=== PATIENT | female | born 1960 | race Caucasian/White ===

== ENCOUNTER 2024-04-19 22:27 | Emergency (ER) | payer BC, SELFPAY ==
[2024-04-19 23:19] LABS: Absolute Basophils 0.1 K/uL (0-0.5); Absolute Eosinophils 0.3 K/uL (0-0.5); Absolute Lymphocytes (CBC) 1.5 K/uL (0.7-4.9); Absolute Monocytes 0.4 K/uL (0.1-1.3); Absolute Neutrophil 3.6 K/uL (1.8-8.0); Basophils % 0.9 % (0-1.3); Eosinophils % 5.9 % (0-4.4); Hematocrit 37.7 % (36.0-45.0); Hemoglobin 12.5 g/dL (12.0-15.0); Lymphocytes % 25.2 % (15.3-44.8); MCHC 33.1 g/dL (32.0-36.0); MCV 87.5 fL (80-100); MPV 7.5 fL (7.6-11.3); Nucleated Red Blood Cells % 0.1 % (0-0); Platelets 256 thou/uL (152-406); Red Cell Distribution Width 16.4 % (12.1-15.2)
[2024-04-19] MEDS ORDERED: NA CHLORIDE 0.9% 1,000 ML ONE (23:23)
[2024-04-19 23:30] LABS: Anion Gap 7.6 mEq/L (5.0-15.0)
[2024-04-20 00:28] LABS: Potassium 3.6 mEq/L (3.5-5.1)
--- NOTE | 2024-04-20 01:40 | ER ---
Nurse's Notes [facility] Name: Rody Camp Age: 63 yrs Sex: Female : 1960 Arrival Date: 04/19/2024 Time: 22:27 Bed 20 Private MD: Diagnosis: Adverse effect of unspecified drugs, medicaments and biological substances Presentation: 04/19 22:36 Chief complaint: Patient states: I took gabapentin 300mg around 1700 and I don't tm6 usually take that medication. Around 1830 I started to feel like my head was scrambled, a little lightheaded, and my lip and nose are numb. I feel unsteady on my feet. Coronavirus screen: Client denies travel out of the [place] in the last 14 days. Ebola Screen: Patient negative for fever greater than or equal to 101.5 degrees Fahrenheit, and additional compatible Ebola Virus Disease symptoms Patient denies exposure to infectious person. Patient denies travel to an Ebola-affected area in the 21 days before illness onset. No symptoms or risks identified at this time. 22:43 Method Of Arrival: Ambulatory tm6 22:51 Initial Sepsis Screen: Does the patient meet any 2 criteria? No. Patient's initial tm6 sepsis screen is negative. Does the patient have a suspected source of infection? No. Patient's initial sepsis screen is negative. Risk Assessment: Do you want to hurt yourself or someone else? Patient reports no desire to harm self or others. Onset of symptoms was April 19, 2024 at 18:30. 22:51 Acuity: SADIE 3 tm6 Triage Assessment: 22:52 General: Appears in no apparent distress. Behavior is calm, cooperative. Pain: Denies tm6 pain. EENT: No signs and/or symptoms were reported regarding the EENT system. Neuro: Level of Consciousness is awake, alert, obeys commands, Oriented to person, place, time, situation, Reports dizziness, numbness in mouth. Cardiovascular: Patient's skin is warm and dry. Respiratory: Airway is patent Respiratory effort is even, unlabored, Respiratory pattern is regular, symmetrical. GI: No signs and/or symptoms were reported involving the gastrointestinal system. Abdomen is round. : No signs and/or symptoms were reported regarding the genitourinary system. Derm: No signs and/or symptoms reported regarding the dermatologic system. Musculoskeletal: No signs and/or symptoms reported regarding the musculoskeletal system. Historical: - Allergies: 22:52 Sulfa (Sulfonamide Antibiotics); tm6 22:52 Vicodin; tm6 - PMHx: 22:52 ptsd; Depressive disorder; Anxiety; dissociative identity disorder; tm6 - PSHx: 22:52 Total abdominal hysterectomy; oophorectomy; nose; carpal tunnel; tm6 - Immunization history:: Client reports receiving the 2nd dose of the Covid vaccine. - Infectious Disease History:: Denies. - Social history:: Smoking status: Patient denies any tobacco usage or history of. Patient/guardian denies using alcohol. Screenin/12 00:12 [facility] ED Fall Risk Assessment (Adult) History of falling in the last 3 months, jb4 including since admission No falls in past 3 months (0 pts) Confusion or Disorientation No (0 pts) Intoxicated or Sedated No (0 pts) Impaired Gait No (0 pts) Mobility Assist Device Used No (0 pt) Altered Elimination No (0 pt) Score/Fall Risk Level 0 - 2 = Low Risk Oriented to surroundings, Maintained a safe environment. Abuse screen: Denies threats or abuse. Nutritional screening: No deficits noted. Tuberculosis screening: No symptoms or risk factors identified. Assessment: 04/19 23:00 General: Appears in no apparent distress. uncomfortable, ill, Behavior is calm, jb4 cooperative, appropriate for age. Pain: Denies pain. Neuro: Level of Consciousness is awake, alert, obeys commands, Oriented to person, place, time, situation, Reports dizziness. Cardiovascular: Patient's skin is warm and dry. Respiratory: Airway is patent Respiratory effort is even, unlabored, Respiratory pattern is regular, symmetrical. GI: No signs and/or symptoms were reported involving the gastrointestinal system. : No signs and/or symptoms were reported regarding the genitourinary system. EENT: No signs and/or symptoms were reported regarding the EENT system. Derm: Skin is intact, Skin is pink, warm \T\ dry. Musculoskeletal: Circulation, motion, and sensation intact. Range of motion: intact in all extremities. 04/20 00:12 Reassessment: Patient appears in no apparent distress at this time. Patient and/or jb4 family updated on plan of care and expected duration. Pain level reassessed. Patient is alert, oriented x 3, equal unlabored respirations, skin warm/dry/pink. 00:57 Reassessment: Patient appears in no apparent distress at this time. Patient and/or jb4 family updated on plan of care and expected duration. Pain level reassessed. Patient is alert, oriented x 3, equal unlabored respirations, skin warm/dry/pink. Vital Signs: 04/19 22:43 BP 148 / 82; Pulse 81; Resp 19; Temp 97.2(TE); Pulse Ox 99% on R/A; MAP 102 mmHg; tm6 Weight 130.63 kg; Height 5 ft. 7 in. ; Pain 0/10; 04/20 00:13 BP 154 / 98; Pulse 68; Resp 16; Pulse Ox 100% ; jb4 00:57 BP 156 / 89; Pulse 75; Resp 16; Pulse Ox 98% on R/A; jb4 04/19 22:43 Body Mass Index 45.11 (130.63 kg, 170.18 cm) tm6 04/19 22:43 Pain Scale: Adult 6 ED Course: 04/19 22:31 Patient arrived in ED. jj6 22:32 Ivet Pagan PA-C is PHCP. sb4 22:32 Clifton Palmer MD is Attending Physician. sb4 22:52 Triage completed. tm6 22:52 Arm band placed on right wrist. tm6 23:26 Head Brain Wo Cont CT In Process Unspecified. EDMS 23:43 Inserted saline lock: in right hand, using aseptic technique. Flushed with 10 mL NS. jb4 04/20 00:12 Patient has correct armband on for positive identification. Bed in low position. Call jb4 light in reach. Side rails up X 1. Provided Education on: plan of care. 00:12 No provider procedures requiring assistance completed. jb4 00:57 Hugh Hoskins, GIOVANNY is Primary Nurse. jb4 02:13 IV discontinued, intact, bleeding controlled, No redness/swelling at site. Pressure cp4 dressing applied. Administered Medications: 04/19 23:42 Drug: NS 0.9% IV 1000 ml IV at 1000 ml once; to be given as a bolus over 60 minutes jb4 Route: IV; Rate: 1000 ml; Site: right hand; 04/20 02:13 Follow up: Response: No adverse reaction; IV Status: Completed infusion; IV Intake: cp4 1000ml Medication: 00:12 VIS not applicable for this client. jb4 Intake: 02:13 IV: 1000ml; Total: 1000ml. cp4 Outcome: 01:39 Discharge ordered by . sb4 02:13 Discharged to home ambulatory, cp4 02:13 Condition: stable 02:13 Discharge instructions given to patient, Instructed on discharge instructions, follow up and referral plans. Demonstrated understanding of instructions, follow-up care, 02:13 Patient left the ED. cp4 Signatures: Dispatcher [employer] EDMS Hugh Hoskins, RN RN jb4 Morenita Moralesj6 Ivet Pagan, PA-C PA-C sb4 Teena Mora cp4 Giselle Vargas RN RN tm6
--- NOTE | 2024-04-20 01:40 | EDPHYS ---
Physician Documentation [facility] Name: Rody aCmp Age: 63 yrs Sex: Female : 1960 Arrival Date: 04/19/2024 Time: 22:27 Bed 20 Private MD: ED Physician Clifton Palmer HPI: 04/20 02:11 This 63 yrs old Female presents to ER via Ambulatory with complaints of Dizziness. sb4 02:11 Patient states that she took gabapentin at night for the first time in a while and now sb4 she is feeling dizzy and like her lips and nose are numb. She states that she feels she can barely walk. She states that her psychiatrist prescribed it to her as a "mood stabilizer ". Historical: - Allergies: 04/19 22:52 Sulfa (Sulfonamide Antibiotics); tm6 22:52 Vicodin; tm6 - PMHx: 22:52 ptsd; Depressive disorder; Anxiety; dissociative identity disorder; tm6 - PSHx: 22:52 Total abdominal hysterectomy; oophorectomy; nose; carpal tunnel; tm6 - Immunization history:: Client reports receiving the 2nd dose of the Covid vaccine. - Infectious Disease History:: Denies. - Social history:: Smoking status: Patient denies any tobacco usage or history of. Patient/guardian denies using alcohol. ROS: 04/20 02:11 Constitutional: Negative for fever, chills, and weight loss, sb4 Neuro: Positive for dizziness, All other systems are negative, Exam: 02:11 Head/Face: Normocephalic, atraumatic. Eyes: Extra-ocular motions intact. Periorbital sb4 areas with no swelling, redness, or edema. ENT: Mucous membranes moist. Cardiovascular: Regular rate and rhythm with a normal S1 and S2. Respiratory: Lungs have equal breath sounds bilaterally, clear to auscultation and percussion. No rales, rhonchi or wheezes noted. No increased work of breathing, no retractions or nasal flaring. Abdomen/GI: Soft, non-tender, no distension. Neuro: Awake and alert, GCS 15, oriented to person, place, time, and situation. Motor strength 5/5 in all extremities. Sensory grossly intact. 02:11 Constitutional: The patient appears in no acute distress, alert, awake, 02:11 Neuro: Gait: is unsteady, Vital Signs: 04/19 22:43 BP 148 / 82; Pulse 81; Resp 19; Temp 97.2(TE); Pulse Ox 99% on R/A; MAP 102 mmHg; tm6 Weight 130.63 kg; Height 5 ft. 7 in. ; Pain 0/10; 04/20 00:13 BP 154 / 98; Pulse 68; Resp 16; Pulse Ox 100% ; jb4 00:57 BP 156 / 89; Pulse 75; Resp 16; Pulse Ox 98% on R/A; jb4 04/19 22:43 Body Mass Index 45.11 (130.63 kg, 170.18 cm) tm6 04/19 22:43 Pain Scale: Adult tm6 MDM: 04/19 22:32 Patient medically screened. sb4 04/20 02:11 Data reviewed: vital signs, nurses notes, lab test result(s), radiologic studies, and sb4 as a result, I will discharge patient. Counseling: I had a detailed discussion with the patient and/or guardian regarding the historical points, exam findings, and any diagnostic results supporting the discharge/admit diagnosis, lab results, radiology results, to return to the emergency department if symptoms worsen or persist or if there are any questions or concerns that arise at home. ED course: Patient feels much better, is able to ambulate without any difficulty. States her symptoms are completely resolved. Will discharge home with instruction to discontinue gabapentin. 04/19 22:41 Order name: CBC with Diff; Complete Time: 23:22 sb4 04/19 22:41 Order name: BMP; Complete Time: 00:32 sb4 04/19 22:41 Order name: Head Brain Wo Cont CT sb4 04/19 22:41 Order name: IV Start; Complete Time: 23:42 sb4 Administered Medications: 04/19 23:42 Drug: NS 0.9% IV 1000 ml IV at 1000 ml once; to be given as a bolus over 60 minutes jb4 Route: IV; Rate: 1000 ml; Site: right hand; 04/20 02:13 Follow up: Response: No adverse reaction; IV Status: Completed infusion; IV Intake: cp4 1000ml Disposition: 05:53 Co-signature as Attending Physician, Clifton Palmer MD I agree with the assessment sp4 and plan of care. I reviewed the patient's care provided by the Advanced Practice Provider and agree with the diagnosis and treatment plan. Disposition Summary: 04/20/24 01:39 Discharge Ordered Notes: Location: Home sb4 Problem: new sb4 Symptoms: have improved sb4 Condition: Stable sb4 Diagnosis - Adverse effect of unspecified drugs, medicaments and biological substances sb4 Followup: sb4 - With: Emergency Department - When: As needed - Reason: Worsening of condition Discharge Instructions: - Discharge Summary Sheet sb4 Forms: - Patient Portal Instructions sb4 - Leadership Thank You Letter sb4 Signatures: Dispatcher [employer] Hugh Rodriguez, RN RN jb4 Ivet Pagan, PAPrasanthC PAPrasanthC sb4 Clifton Palmer MD MD sp4 Giselle Vargas RN RN tm6 Teena Mora cp4
--- NOTE | 2024-04-20 02:33 | RAD REPORT ---
EXAM DESCRIPTION: Head Brain Wo Cont CLINICAL HISTORY: 63 years Female Dizziness, confused. COMPARISON: None. TECHNIQUE: Images were obtained in axial, coronal and sagittal planes. No contrast administration. This exam was performed according to our departmental dose-optimization program which includes use of Automated Exposure Control, adjustment of the mA and/or kV according to patient size and/or use of iterative re construction technique. FINDINGS: Ventricular system appears normal. No abnormal areas of increased attenuation seen. No extra-axial fluid collections noted. No evidence for skull fracture. Mucosal thickening right maxillary antrum. Symmetric aeration of mast oid air cells bilaterally. IMPRESSION: No acute intracranial abnormality. No evidence for hemorrhage, mass lesion, or large acute infarction . Electronically signed by: Merlene Gomez MD 04/19/2024 11:57 PM CDT RP Due to temporary technical issues with the PACS/Qwikwire reporting system, reports are being kam d by the in-house radiologist without review as a courtesy to ensure prompt reporting the interpreting radiologist is fully responsible for the content of the report. Transcribed Date/Time: 04/20/2024 9:52 PM
[2024-04-20 07:13] VITALS: TEMP 97.2
[2024-04-20 07:17] VITALS: BP 156/89; O2SAT 98
== END 2024-04-20 02:13 | disposition home or self-care (01) ==
LOC: ER 22:27
DX: R42 Dizziness and giddiness (principal); T42.6X5A Adverse effect of other antiepileptic and sedative-hypnotic drugs, initial encounter; F32.A Depression, unspecified; F41.9 Anxiety disorder, unspecified
CPT/HCPCS: 85025; 80048; 36415; 70450; J7030; 96360; 96361; 99284

== ENCOUNTER 2024-11-02 16:46 | Emergency (ER) | payer BC ==
[2024-11-02 17:44] LABS: Specific Gravity 1.028 (1.005-1.030); Sqamous Epithelial <5 /HPF (None Seen); Urine Bacteria None Seen /HPF (<20); Urine Bilirubin NEGATIVE (Negative); Urine Blood Negative (Negative); Urine Clarity Clear (Clear); Urine Color Light-Yellow (Yellow); Urine Crystals Unidentified Few /HPF (None Seen); Urine Culture Reflex Order NOT NEEDED; Urine Glucose NEGATIVE (Negative); Urine Ketones NEGATIVE (Negative); Urine Microscopic Reflex YN ORDER UMIC; Urine Mucus Slight /HPF (None Seen); Urine Nitrite NEGATIVE (Negative); Urine Protein TRACE (Negative); Urine RBC <5 /HPF (None Seen); Urine Urobilinogen Normal (Normal); Urine WBC <5 /HPF (<5); Urine pH 7.5 (5.0-7.0)
[2024-11-02 17:56] LABS: Barbiturates NEGATIVE (NEGATIVE); Benzodiazepines NEGATIVE (NEGATIVE); Cocaine NEGATIVE (NEGATIVE); METHAMPHETAM NEGATIVE (NEGATIVE); Methadone NEGATIVE (NEGATIVE); Opiates NEGATIVE (NEGATIVE); Phencyclidine NEGATIVE (NEGATIVE); THC Cannibis NEGATIVE (NEGATIVE)
[2024-11-02] MEDS ORDERED: ONDANSETRON 4 MG/2 ML VIAL ONE (19:32)
[2024-11-02] MEDS ORDERED: NA CHLORIDE 0.9% 1,000 ML ONE (19:33)
[2024-11-02 19:48] LABS: Absolute Eosinophils 0.3 K/uL (0-0.5); Absolute Lymphocytes (CBC) 1.6 K/uL (0.7-4.9); Absolute Monocytes 0.5 K/uL (0.1-1.3); Absolute Neutrophil 2.9 K/uL (1.8-8.0); Basophils % 0.6 % (0-1.3); Eosinophils % 6.2 % (0-4.4); Hematocrit 35.8 % (36.0-45.0); Hemoglobin 11.9 g/dL (12.0-15.0); Lymphocytes % 29.7 % (15.3-44.8); MCH 28.6 pg (27.0-35.0); MCHC 33.2 g/dL (32.0-36.0); MCV 85.9 fL (80-100); MPV 7.3 fL (7.6-11.3); Monocytes % 9.2 % (3.3-12.3); Neutrophils % 54.3 % (41.7-73.7); Nucleated Red Blood Cells % 0.1 % (0-0); Platelets 239 thou/uL (152-406); RBC Red Blood Cell Count 4.17 M/uL (3.86-4.86); Red Cell Distribution Width 15.3 % (12.1-15.2)
[2024-11-02 20:11] LABS: PT Prothrombin Time 11.5 SECONDS (10-13.0); PTT, Activated Partial Thromb 32.9 SECONDS (27.2-37.4); Protime INR 1.01
[2024-11-02 20:24] LABS: ALT/SGPT 16 U/L (13-56); AST/SGOT 11 U/L (15-37); Albumin 3.2 g/dL (3.4-5.0); Albumin/Globulin Ratio 1.1 (1.1-1.8); Alkaline Phosphatase 92 U/L (45-117); Anion Gap 6.2 mEq/L (5.0-15.0); BUN Blood Urea Nitrogen 14 mg/dL (7-18); Bicarbonate 30 mEq/L (21-32); Bilirubin Total 0.2 mg/dL (0.2-1.0); Glomerular Filtration Rate 74 ml/min (=/>90); Glucose Level 98 mg/dL (74-106); Potassium 4.2 mEq/L (3.5-5.1); Protein, Total 6.2 g/dL (6.4-8.2); Sodium Level 140 mEq/L (136-145)
[2024-11-02 20:27] LABS: Bilirubin Direct < 0.2 mg/dL (0-0.2)
--- NOTE | 2024-11-02 21:23 | ER ---
Nurse's Notes [facility] Name: Rody Camp Age: 63 yrs Sex: Female : 1960 Arrival Date: 11/02/2024 Time: 16:46 Bed 9 Private MD: Diagnosis: Headache Presentation: 11/02 17:11 Chief complaint: Patient states: started trazodone and Abilify 3weeks ago , has had iw some confusion for a few days , also has vertigo and head is "buzzing". 17:12 Coronavirus screen: At this time, the client does not indicate any symptoms associated iw with coronavirus-19. Ebola Screen: No symptoms or risks identified at this time. Initial Sepsis Screen: Does the patient meet any 2 criteria? No. Patient's initial sepsis screen is negative. Does the patient have a suspected source of infection? No. Patient's initial sepsis screen is negative. Risk Assessment: Do you want to hurt yourself or someone else? Patient reports no desire to harm self or others. Onset of symptoms was October 26, 2024. 17:12 Method Of Arrival: Ambulatory iw 17:12 Acuity: SADIE 3 iw Triage Assessment: 21:00 General: Appears in no apparent distress. comfortable, Behavior is calm, cooperative, rg5 appropriate for age. Pain: Denies pain. EENT: No deficits noted. Neuro: Level of Consciousness is awake, alert, obeys commands, Oriented to person, place, time, Reports headache. Cardiovascular: No deficits noted. Patient's skin is warm and dry. Respiratory: No deficits noted. Breath sounds are clear. GI: No signs and/or symptoms were reported involving the gastrointestinal system. : No signs and/or symptoms were reported regarding the genitourinary system. Derm: Skin is intact, Skin is dry, Skin is normal, Skin temperature is warm. Musculoskeletal: Circulation, motion, and sensation intact. Range of motion: intact in all extremities. Historical: - Allergies: 17:13 Sulfa (Sulfonamide Antibiotics); iw 17:13 Vicodin; iw 21:38 PENICILLINS; rg5 21:38 Oxycodone; rg5 21:38 Demerol; rg5 21:38 Lidocaine; rg5 21:38 resperidone; rg5 21:38 Amitriptyline; rg5 - PMHx: 17:13 depressive disorder; Anxiety; PTSD; Dissociative Identity Disorder; iw - PSHx: 17:13 carpal tunnel; Nose; oophorectomy; Total abdominal hysterectomy; iw Assessment: 19:50 General: Appears comfortable, Behavior is calm, cooperative. Pain: Complains of pain in ha1 HEADACHE Pain does not radiate. Pain currently is 7 out of 10 on a pain scale. Quality of pain is described as pressure. Neuro: Level of Consciousness is awake, alert, obeys commands, Oriented to person, place, time, situation, Reports headache. 20:40 Reassessment: DENIES SUICIDAL IDEATIONS. ha1 Vital Signs: 17:12 BP 164 / 107; Pulse 74; Resp 16; Temp 98.7(O); Pulse Ox 99% on R/A; iw 21:00 BP 145 / 89; Pulse 77; Resp 18; Pulse Ox 99% ; rg5 ED Course: 16:52 Patient arrived in ED. cj3 17:02 Raji Barkley FNP-C [facility]. dr5 17:02 Robin Babcock MD is Attending Physician. dr5 17:13 Triage completed. iw 19:44 Acetaminophen Sent. cm10 19:44 Basic Metabolic Panel Sent. cm10 19:44 CBC with Diff Sent. cm10 19:44 ETOH Level Sent. cm10 19:44 Hepatic Function Sent. cm10 19:44 PT-INR Sent. cm10 19:44 Ptt, Activated Sent. cm10 19:44 Salicylate Sent. cm10 19:44 Accessed peripheral vein via ultrasound, utilizing dynamic ultrasound technique Blood cm10 collected. Clean \\T\\ dry. Dressing intact. Good blood return. Flushes easily. 20g left ac. 19:54 Miryam Roberto, RN is Primary Nurse. ha1 21:00 Arm band placed on right wrist. rg5 21:35 No provider procedures requiring assistance completed. IV discontinued, bleeding rg5 controlled, No redness/swelling at site. Pressure dressing applied. Administered Medications: 19:54 Drug: NS 0.9% IV 1000 ml IV at 1000 ml once; to be given as a bolus over 60 minutes ha1 Route: IV; Rate: 1000 ml; Site: left antecubital; 21:00 Follow up: IV Status: Completed infusion; IV Intake: 1000ml rg5 19:54 Drug: Ondansetron IVP 4 mg IVP once; over 2 minutes Route: IVP; Site: left antecubital; ha1 21:00 Follow up: Response: No adverse reaction; Pain is decreased rg5 Intake: 21:00 IV: 1000ml; Total: 1000ml. rg5 Outcome: 21:22 Discharge ordered by . dr5 21:35 Discharged to home ambulatory, rg5 21:35 Condition: stable 21:35 Discharge instructions given to patient, Instructed on discharge instructions, Demonstrated understanding of instructions, 21:36 Patient left the ED. rg5 Signatures: Pau Valdez, RN RN iw Miryam Roberto RN RN ha1 Rebekah Friend RN RN cm10 Dmitri Hinkle RN RN rg5 Raji Barkley, NURSES AIDE-C NURSES AIDE-[facility] [place]5 Claudia Jasmine 3 Corrections: (The following items were deleted from the chart) 17:13 17:11 Chief complaint: Patient states: started trazodone and Abilify 3weeks ago , has iw had some confusion iw 17:23 17:12 BP 164 / 107; Pulse 74bpm; Resp 16bpm; Pulse Ox 99% RA; iw iw
--- NOTE | 2024-11-02 21:23 | EDPHYS ---
Physician Documentation [facility] Name: Rody Camp Age: 63 yrs Sex: Female : 1960 Arrival Date: 11/02/2024 Time: 16:46 Bed 9 Private MD: ED Physician Robin Babcock HPI: 11/02 17:11 This 63 yrs old Female presents to ER via Unassigned with complaints of dr5 Medication Reactions. 17:11 Patient reports that she started Trazadone and Abilify about 3 weeks ago. Patient dr5 reports she is not feeling right and feeling confused. Patient states that she has been feeling out of it for the past week. Dr. Christian is her current psychiatrist. Patient denies suicidal ideation and homicidal ideation. Patient denies audio / visual hallucinations. Patient reports she has appointment on Monday11/04/24.. Historical: - Allergies: 17:13 Sulfa (Sulfonamide Antibiotics); iw 17:13 Vicodin; iw 21:38 PENICILLINS; rg5 21:38 Oxycodone; rg5 21:38 Demerol; rg5 21:38 Lidocaine; rg5 21:38 resperidone; rg5 21:38 Amitriptyline; rg5 - PMHx: 17:13 depressive disorder; Anxiety; PTSD; Dissociative Identity Disorder; iw - PSHx: 17:13 carpal tunnel; Nose; oophorectomy; Total abdominal hysterectomy; iw ROS: 22:42 Constitutional: as per hpi dr5 Exam: 22:42 Constitutional: This is a well developed, well nourished patient who is awake, alert, dr5 and in no acute distress. Head/Face: Normocephalic, atraumatic. Eyes: Pupils equal round and reactive to light, extra-ocular motions intact. Lids and lashes normal. Conjunctiva and sclera are non-icteric and not injected. Cornea within normal limits. Periorbital areas with no swelling, redness, or edema. Neck: Trachea midline, no thyromegaly or masses palpated, and no cervical lymphadenopathy. Supple, full range of motion without nuchal rigidity, or vertebral point tenderness. No Meningismus. Chest/axilla: Normal chest wall appearance and motion. Nontender with no deformity. No lesions are appreciated. Cardiovascular: Regular rate and rhythm with a normal S1 and S2. Normal PMI, no JVD. No pulse deficits. Respiratory: Lungs have equal breath sounds bilaterally, clear to auscultation. No rales, rhonchi or wheezes noted. No increased work of breathing, no retractions or nasal flaring. Back: No spinal tenderness. No costovertebral tenderness. Full range of motion. Skin: Warm, dry with normal turgor. Normal color with no rashes, no lesions, and no evidence of cellulitis. MS/ Extremity: Pulses equal, no cyanosis. Neurovascular intact. Full, normal range of motion. Neuro: Awake and alert, GCS 15, oriented to person, place, time, and situation. Cranial nerves II-XII grossly intact. Motor strength 5/5 in all extremities. Sensory grossly intact. Cerebellar exam normal. Normal gait. Vital Signs: 17:12 BP 164 / 107; Pulse 74; Resp 16; Temp 98.7(O); Pulse Ox 99% on R/A; iw 21:00 BP 145 / 89; Pulse 77; Resp 18; Pulse Ox 99% ; rg5 MDM: 17:03 Medical Screening Exam initiated dr5 22:42 Differential diagnosis: viral Infection, bacterial infection, URI. Data reviewed: vital dr5 signs, nurses notes, lab test result(s). I considered the following discharge prescriptions or medication management in the emergency department Medications were administered in the Emergency Department. See MAR. Care significantly affected by the following chronic conditions: Depression, anxiety, PTSD. Care significantly affected by the following Social Determinants of Health: Poor access to healthcare and/or lack of insurance, Poor access to transportation, Problems related to employment. Counseling: I had a detailed discussion with the patient and/or guardian regarding the historical points, exam findings, and any diagnostic results supporting the discharge/admit diagnosis, the presence of at least one elevated blood pressure reading (>120/80) during this emergency department visit, lab results, the need for outpatient follow up, for definitive care, a family practitioner, to return to the emergency department if symptoms worsen or persist or if there are any questions or concerns that arise at home. Medication response: NS. Response to treatment: the patient's symptoms have markedly improved after treatment. ED course: Patient reports she is feeling better. Went over lab work with patient was unremarkable. Patient has psychiatrist appointment on Monday. Patient states that she is not suicidal or homicidal, or seeing audio or visual hallucinations. Patient has safety at home with no access to medications or firearms. Patient states that she would like to go home and take Klonopin and follow-up with her psychiatrist on Monday. And will return for any worsening conditions. Had 15-minute discussion with patient regarding all of this and all of her questions were answered.. 11/02 17:15 Order name: Acetaminophen; Complete Time: 20:34 dr5 11/02 17:15 Order name: Basic Metabolic Panel; Complete Time: 20:34 dr5 11/02 17:15 Order name: CBC with Diff; Complete Time: 20:15 dr5 11/02 17:15 Order name: ETOH Level; Complete Time: 20: dr5 11/02 17:15 Order name: Hepatic Function; Complete Time: :34 dr5 11/02 17:15 Order name: PT-INR; Complete Time: 20:15 dr5 11/02 17:15 Order name: Ptt, Activated; Complete Time: 20:15 dr5 11/02 17:15 Order name: Salicylate; Complete Time: 20:23 dr5 11/02 17:15 Order name: Urinalysis w/ reflexes; Complete Time: 17:47 dr5 11/02 17:15 Order name: Urine Drug Screen; Complete Time: 18:11 dr5 11/02 17:15 Order name: EKG - Nurse/Tech; Complete Time: 20:02 dr5 11/02 17:15 Order name: IV Saline Lock; Complete Time: 19:44 dr5 11/02 17:15 Order name: Labs collected and sent; Complete Time: 19:44 dr5 11/02 17:15 Order name: Suicide Screening ([place]); Complete Time: 21:21 dr5 EC:41 Rate is 63 beats/min. Rhythm is regular. QRS [place] is Normal. CA interval is normal at dr5 234 msec. QRS interval is normal at 80 msec. QT interval is normal at 404 msec. Administered Medications: 19:54 Drug: NS 0.9% IV 1000 ml IV at 1000 ml once; to be given as a bolus over 60 minutes ha1 Route: IV; Rate: 1000 ml; Site: left antecubital; 21:00 Follow up: IV Status: Completed infusion; IV Intake: 1000ml rg5 19:54 Drug: Ondansetron IVP 4 mg IVP once; over 2 minutes Route: IVP; Site: left antecubital; ha1 21:00 Follow up: Response: No adverse reaction; Pain is decreased rg5 Disposition Summary: 11/02/24 21:22 Discharge Ordered Notes: Location: Home dr5 Condition: Stable dr5 Diagnosis - Headache dr5 Followup: dr5 - With: Emergency Department - When: As needed - Reason: Worsening of condition Followup: dr5 - With: Private Physician - When: 1 - 2 days - Reason: Recheck today's complaints, Continuance of care, Re-evaluation by your physician Discharge Instructions: - Discharge Summary Sheet dr5 - General Headache Without Cause dr5 Forms: - Medication Reconciliation Form dr5 - Patient Portal Instructions dr5 - Leadership Thank You Letter dr5 Addendum: 11/04/2024 09:07 Co-signature as Attending Physician, Robin Babcock MD I reviewed the patient's care r n provided by the Advanced Practice Provider and agree with the diagnosis and treatment plan. Signatures: Dispatcher [employer] EDPau Posadas RN RN Robin Babcock MD MD rn Ayala, Heidy, RN RN ha1 Dmitri Hinkle RN RN rg5 Raji Barkley, RESIDENT PROGRAMS ASSISTANT-C RESIDENT PROGRAMS ASSISTANT-Cdr5 Corrections: (The following items were deleted from the chart) 11/02 17:16 17:16 ACETAMINOPHEN+C.LAB.BRZ ordered. EDMS EDMS 17:16 17:16 BASIC METABOLIC PANEL+C.LAB.BRZ ordered. EDMS EDMS 17:16 17:16 CBC+H.LAB.BRZ ordered. EDMS EDMS 17:16 17:16 ETHANOL+C.LAB.BRZ ordered. EDMS EDMS 17:16 17:16 HEPATIC FUNCTION+C.LAB.BRZ ordered. EDMS EDMS 17:16 17:16 PROTIME (+INR)+COAG.LAB.BRZ ordered. EDMS EDMS 17:16 17:16 PTT, ACTIVATED+COAG.LAB.BRZ ordered. EDMS EDMS 17:16 17:16 SALICYLATE+C.LAB.BRZ ordered. EDMS EDMS 17:16 17:16 Urinalysis+U.LAB.BRZ ordered. EDMS EDMS 17:16 17:16 URINE DRUG SCREEN+UC.LAB.BRZ ordered. EDMS EDMS
--- NOTE | 2024-11-04 12:11 | EKG ---
Test Date: 2024-11-02 Test Time: 18:41:25 Senior Payroll Manager: AM MEASUREMENT RESULTS: Intervals: Rate: 63 SD: 234 QRSD: 80 QT: 404 QTc: 413 [place]: P: 45 SD: 234 QRS: -23 T: 13 INTERPRETIVE STATEMENTS: Sinus rhythm with 1st degree AV block Possible Anterior infarct, age undetermined Abnormal ECG No previous ECG available for comparison Electronically Signed On 11-04-24 12:08:20 CDT by Navdeep Allen
[2024-11-04 23:34] VITALS: TEMP 98.7; O2SAT 99
[2024-11-04 23:35] VITALS: BP 145/89
== END 2024-11-02 21:36 | disposition home or self-care (01) ==
LOC: ER 16:46
DX: R51.9 Headache, unspecified (principal); F32.A Depression, unspecified
CPT/HCPCS: 96361; 93005; 85025; 81001; 80048; 36415; 85610; 80076; 85730; 80307; 96374; 99284; 80143; 80179; 82077; J2405; J7030